=== PATIENT | female | born 2000 | race Caucasian/White ===

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

== ENCOUNTER 2021-09-04 14:15 | Outpatient (CLI) | payer BC | END 2021-09-04 23:59 | disposition home or self-care (01) | LOC: LAB 14:15 | PROVIDERS: ATTEND Physician Assistant | DX: J06.9 Acute upper respiratory infection, unspecified (principal); Z20.822 Contact with and (suspected) exposure to COVID-19 ==

== ENCOUNTER 2022-09-07 08:00 | Outpatient (CLI) | payer BC | END 2022-09-07 23:59 | disposition home or self-care (01) | LOC: LAB.S 08:00 | PROVIDERS: ATTEND Physician Assistant | DX: N64.52 Nipple discharge (principal) | CPT/HCPCS: 87070; 87205 ==

== ENCOUNTER 2022-10-07 13:15 | Outpatient (CLI) | payer BC ==
--- NOTE | 2022-10-08 15:11 | Ultrasound Report ---
LIMITED ULTRASOUND OF LEFT BREAST AND AXILLA: 10/07/2022 CLINICAL: Palpable left breast lump, lft nipple discharge. No prior exams were available for comparison. Color flow and real-time ultrasound of the left breast 10 o'clock, retroareolar, and axilla regions were performed. Romo scale images of the real-time examination were reviewed. No significant abnormalities were seen sonographically in the left breast or the left axilla. IMPRESSION: NEGATIVE There is no sonographic evidence of malignancy. This exam was interpreted at Station ID: [id number]. Electronically Signed By: Sanya Chester M.D., jr/marli:10/07/2022 15:34:32 Ultrasound BI-RADS: 1 Negative BI-RADS CATEGORY: (1) - 1 Unspecified - other recall n/a LATERALITY: (B)
== END 2022-10-07 13:16 | disposition home or self-care (01) ==
LOC: DI 13:15
PROVIDERS: ATTEND Physician Assistant
DX: N63.22 Unspecified lump in the left breast, upper inner quadrant (principal); N64.52 Nipple discharge

== ENCOUNTER 2023-04-14 10:45 | Outpatient (CLI) | payer BC ==
--- NOTE | 2023-04-15 11:10 | Ultrasound Report ---
LIMITED ULTRASOUND OF LEFT BREAST: 04/14/2023 CLINICAL: Palpable left breast lump. Comparison is made to exam dated: 10/07/2022 ultrasound - [facility]. Ultrasound of the left breast 10 o'clock region was performed. Romo scale images of the real-time e xamination were reviewed. IMPRESSION: NEGATIVE There is no sonographic evidence of malignancy. There is no abnormality seen in the left breast to correspond with the area of clinical concern and p alpable abnormality at 10 o'clock, however, clinical correlation and clinical followup are recommende d. If there is a high suspicion clinical finding, breast MRI could be ordered. This exam was interpreted at Station ID: [id number]. Electronically Signed By: Fredi Lloyd M.D. lc/:04/14/2023 12:39:10 Ultrasound BI-RADS: 1 Negative BI-RADS CATEGORY: (1) - 1 Mammogram [id number] 3 year screening LATERALITY: (B)
== END 2023-04-14 10:46 | disposition home or self-care (01) ==
LOC: DI 10:45
PROVIDERS: ATTEND Nurse Practitioner Obstetrics & Gynecology
DX: N63.22 Unspecified lump in the left breast, upper inner quadrant (principal)